=== PATIENT | female | born 1960 | race African-American/Black ===

== ENCOUNTER → 2017-05-27 | Outpatient (CLI) | payer OTHER ==
[2017-05-27 09:42] LABS: BASOPHIL % 0.8 % (0-2); PLATELET COUNT 276 x10^3mcL (130-400); RED CELL DISTRIBUTION WIDTH 14.3 % (11.5-14.5)
[2017-05-27 10:04] LABS: ALBUMIN 3.4 g/dL (3.4-5.0); BILIRUBIN TOTAL 0.5 mg/dL (0.20-1.00); CALCIUM 9.2 mg/dL (8.5-10.1); CARBON DIOXIDE 27.3 mmol/L (21-32); CREATININE SERUM 1.3 mg/dL (0.6-1.0); POTASSIUM SERUM 4.1 mmol/L (3.5-5.1)
[2017-05-27 10:06] LABS: CHOLESTEROL/HDL RATIO 3.4; TOTAL PROTEIN, SERUM 8.5 g/dL (6.4-8.2)
[2017-05-27 10:15] LABS: FREE T4 1.09 ng/dL (0.76-1.46); T4(THYROXINE) 8.4 ug/dL (4.7-13.3)
[2017-05-27 10:25] LABS: T3 TOTAL 1.12 ng/mL
== END | disposition home or self-care (01) ==
LOC: LB 09:04
PROVIDERS: Neuromusculoskeletal Medicine & OMM
DX: R53.83 Other fatigue (principal); R35.0 Frequency of micturition; J32.9 Chronic sinusitis, unspecified; N95.2 Postmenopausal atrophic vaginitis
CPT/HCPCS: 84439

== ENCOUNTER 2020-04-01 14:23 | Emergency (ER) | payer OTHER, SELFPAY ==
[~2020-04-01] VITALS: Ht 157.5 cm; Wt 83.9 kg
[2020-04-01 14:31] VITALS: Ht 157.5 cm; Wt 83.9 kg
[2020-04-01 17:40] VITALS: BP 146/90
== END 2020-04-01 17:40 | disposition home or self-care (01) ==
LOC: ED 14:23
DX: U07.1 COVID-19 (principal); Z88.5 Allergy status to narcotic agent; Z88.1 Allergy status to other antibiotic agents